=== PATIENT | male | born 1955 | race Caucasian/White ===

== ENCOUNTER 2016-06-10 08:22 | Emergency (ER) | payer OTHER ==
[~2016-06-10] VITALS: Ht 172.7 cm; Wt 76.1 kg
[~2016-06-10 08:22] MED LIST: ATARAX,VISTARIL50 MG PO; CLONAZEPAM0.5 MG PO; METOPROLOL SUCC50 MG PO; MORPHINE SULFAT60 MG PO; TIZANIDINE HCL4 MG PO
[2016-06-10 08:51] LABS: BASOPHIL COUNT 0.1 K/uL (0-0.1); EOSINOPHIL (%) 1.6 % (0-5); EOSINOPHIL COUNT 0.1 K/uL (0-0.3); IMMATURE GRANULOCYTE (%) 0.1 % (0.0-0.7); IMMATURE GRANULOCYTE COUNT 0.1 K/uL; LYMPHOCYTE COUNT 1.5 K/uL (1.0-2.8); MCH 31.4 PG (29.0-34.0); MCHC 34.1 G/DL (30.0-36.0); MCV 92.1 FL (86-99); MEAN PLAT.VOLUME 10.7 uM^3 (9.0-12.4); MONOCYTE (%) 8.7 % (3-12); MONOCYTE COUNT 0.7 K/uL (0-0.8); NEUTROPHIL (%) 71.5 % (45-76); NEUTROPHIL COUNT 6.1 K/uL (1.8-6.4); PLATELET COUNT 183 K/uL (156-360); RBC DIS.WIDTH-CV 14.2 % (11.8-14.6); RBC DIS.WIDTH-SD 46.4 % (39-53); RED BLOOD COUNT 4.78 M/uL (4.00-5.50); WHITE BLOOD COUNT 8.6 K/uL (4.1-10.2)
[2016-06-10 09:03] LABS: CHLORIDE 109 mEq/L (99-109); D-DIMER ELISA 0.42 mg/L FEU (< 0.57); POTASSIUM 4.2 mEq/L (3.7-5.4); PTT 28.7 (25-32); SODIUM 143 mEq/L (136-147)
[2016-06-10 09:05] LABS: GLUCOSE 100 mg/dL (70-99)
[2016-06-10 09:06] LABS: ANION GAP 9 MEQ/L (2-14)
[2016-06-10 09:09] LABS: GFR ESTIMATE (CALCULATED) > 59 mL/min/
[2016-06-10 09:10] LABS: UREA NITROGEN (BUN) 11 mg/dL (9-23)
[2016-06-10 09:13] LABS: TROP-I INTERPRETATION NEGATIVE; TROPONIN-I < 0.01 ng/mL (0.0-0.30)
[2016-06-10 10:53] VITALS: BP 131/87
== END 2016-06-10 10:56 | disposition home or self-care (01) ==
LOC: EME 08:22
PROVIDERS: Emergency Medicine
DX: R42 Dizziness and giddiness (principal)
CPT/HCPCS: 70450; 71010; 80048; 83880; 84484; 85025; 85379; 85610; 85730; 93005; 99281; 99285; J7030

== ENCOUNTER → 2016-07-10 | Outpatient (CLI) | payer OTHER | END | disposition home or self-care (01) | LOC: RES 12:34 | DX: J44.9 Chronic obstructive pulmonary disease, unspecified (principal) | CPT/HCPCS: 94060; 94726; 94729 ==